=== PATIENT | female | born 1990 ===

== ENCOUNTER 2022-03-06 10:00 | Emergency (ER) | payer SELFPAY ==
[2022-03-06 10:06] VITALS: BP 146/100; PULSE 80; RESP 20; TEMP 98.4
--- NOTE | 2022-03-06 10:29 | XR ---
EXAMINATION TYPE: XR knee complete RT DATE OF EXAM: 03/06/2022 COMPARISON: None HISTORY: Injury, pain TECHNIQUE: 3 view right knee FINDINGS: Joint spaces are preserved. No acute fracture or dislocation is evident. No joint effusion is evident. Follow-up exam can be performed 7-10 days with acute trauma for continued pain. IMPRESSION: 1. No acute osseous abnormality.
--- NOTE | 2022-03-06 11:06 | ED ---
Lower Extremity Injury HPI - General Chief Complaint: Extremity Injury, Lower Stated Complaint: [facility] - rt knee injury Time Seen by Provider: 03/06/22 10:30 Source: patient Mode of arrival: ambulatory Limitations: no limitations - History of Present Illness Initial Comments: Patient is a 31-year-old female presenting with chief complaint of right knee pain. 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 She is having pain with weightbearing and range of motion, this is primarily on the medial side of the knee. She had limited range of motion. Patient states that when she strained her knee for the x-ray. She felt a "pop" and a lot of pain relief. She denied any numbness, tingling, weakness, discoloration. - Related Data Allergies Allergy/AdvReac Type Severity Reaction Status Date / Time amoxicillin Allergy Rash/Hives Verified 03/06/22 10:06 clindamycin Allergy Rash/Hives Verified 03/06/22 10:06 Review of Systems ROS Statement: Those systems with pertinent positive or pertinent negative responses have been documented in the HPI. ROS Other: All systems not noted in ROS Statement are negative. Past Medical History Past Medical History: Asthma History of Any Multi-Drug Resistant Organisms: None Reported Past Surgical History: Section Past Psychological History: No Psychological Hx Reported Smoking Status: Never smoker Past Alcohol Use History: Occasional Past Drug Use History: None Reported General Exam Limitations: no limitations General appearance: alert, in no apparent distress Head exam: Present: atraumatic, normocephalic, normal inspection Eye exam: Present: normal appearance, EOMI. Absent: scleral icterus, periorbital swelling Neck exam: Present: normal inspection Right Knee exam: Present: normal inspection, full ROM, tenderness (mild). Absent: swelling, ecchymosis, deformity Neurovascular tendon exam: Present: no vascular compromise. Absent: motor deficit, sensory deficit Neurological exam: Present: alert, oriented X3, CN II-XII intact Psychiatric exam: Present: normal affect, normal mood Skin exam: Present: warm, dry, intact, normal color. Absent: rash Course Vital Signs 03/06/22 10:03 Temperature 98.4 F Pulse Rate 80 Respiratory 20 Rate Blood Pressure 146/100 O2 Sat by Pulse 99 Oximetry Medical Decision Making - Medical Decision Making Patient is a 31-year-old female presenting with chief complaint of right knee pain. Patient injured knee while at work. On examination patient has full range of motion, there is no tenderness to palpation. No deformity. X-ray shows no acute fracture or dislocation. Likely soft tissue injury. Advised the patient to alternate Motrin and Tylenol as needed for pain control. Rest, ice, compress, elevate. Utilize supportive knee brace for symptomatic management. Follow-up with PCP in one to 2 days. Report back to ER with any new or worsening symptoms. Discussed return parameters answered all questions. Patient conveyed verbal understanding and agreed to the plan. I discussed this case with my attending Dr. Arroyo. Disposition Clinical Impression: Knee strain Disposition: HOME SELF-CARE Condition: Good Instructions (If sedation given, give patient instructions): Knee Pain (ED) Additional Instructions: Follow-up with PCP in one to 2 days. Report back to ER with any new or worsening symptoms. Take Motrin and Tylenol as needed for pain. Rest, ice, compress, elevate the knee. Is patient prescribed a controlled substance at d/c from ED?: No Referrals: Caitlin Lynch MD [Primary Care Provider] - 1-2 days Time of Disposition: 11:05
== END 2022-03-06 11:14 | disposition home or self-care (01) ==
LOC: EC 10:00
DX: S83.91XA Sprain of unspecified site of right knee, initial encounter (principal); J45.909 Unspecified asthma, uncomplicated; Z88.0 Allergy status to penicillin; Z88.1 Allergy status to other antibiotic agents; X50.0XXA Overexertion from strenuous movement or load, initial encounter
CPT/HCPCS: 99283